=== PATIENT | female | born 1955 | race Asian ===

== ENCOUNTER 2021-06-29 01:41 | Emergency (ER) | payer MEDICARE, MEDICAID, SELFPAY ==
--- NOTE | ~2021-06-29 | CT_ITS ---
EXAMINATION: CT ABDOMEN AND PELVIS WITH CONTRAST CLINICAL INFORMATION: Abdominal pain, nausea and vomiting COMPARISON: None TECHNIQUE: Multidetector volumetric images were obtained from the superior aspect of the liver through the pubic symphysis following administration 85 mL of Omnipaque 350 intravenous contrast. Sagittal and coronal reformatted images were obtained on the technologist's workstation. Oral contrast: No This CT examination was performed using dose optimization techniques as appropriate, variously including the following: *Automated exposure control *Adjustment of mA and/or kV according to patient size (this includes techniques or standardized protocols for targeted exams where dose is matched to indication/reason for exam; i.e. extremities or head) *Use of iterative reconstruction technique DLP: 332 mGy-cm FINDINGS: LUNG BASES: The visualized lung bases are unremarkable. LIVER, GALLBLADDER, AND BILIARY TREE: The liver is normal in size, shape, and attenuation. There is a subcentimeter cyst within the medial segment. No suspicious liver lesions. No intra or extrahepatic biliary ductal dilatation is present. Gallbladder unremarkable. PANCREAS: Unremarkable. SPLEEN: Unremarkable. ADRENAL GLANDS: Unremarkable. KIDNEYS AND URETERS: The kidneys are normal in size, shape, and attenuation. There is a subcentimeter cyst in the left kidney, benign requiring no further follow-up. No hydronephrosis, hydroureter, or calculi seen. No perinephric stranding. BLADDER: Unremarkable. GASTROINTESTINAL TRACT: The small and large bowel are unremarkable. The appendix is unremarkable. ABDOMINAL WALL: No significant hernia is appreciated. LYMPH NODES: Normal. VASCULAR: Aorta is atherosclerotic but normal caliber. Patent venous structures. PELVIC VISCERA: Hysterectomy. Right ovary unremarkable. Left ovary not seen. No adnexal abnormalities. OSSEOUS STRUCTURES: No acute or suspicious osseous abnormalities. CT/CT abdomen pelvis w con IMPRESSION: No acute findings within the abdomen or pelvis to explain the patient's symptomatology.
[2021-06-29 01:45] VITALS: BP 173/88; PULSE 70; RESP 16; TEMP 36.9; O2SAT 98; BMI 21.4
[2021-06-29 02:11] LABS: Appearance Urine CLEAR; Color Urine YELLOW; Glucose Urine UA NEG (NEG); Leukocyte Esterase Urine NEG (NEG); Nitrite Urine NEG (NEG); Specific Gravity - Urine <= 1.005 (1.005-1.025); UACC Culture Trigger NO; Urine Blood TRACE (NEG); Urine Ketones NEG (NEG); Urine Protein NEG (NEG-TRACE)
[2021-06-29 02:17] LABS: Bacteria Urine 1+ /LPF; Squamous Epithelial Cell Urine 2+ /LPF
[2021-06-29 02:35] VITALS: BP 152/84; PULSE 64; RESP 14; O2SAT 98
[2021-06-29 02:39] LABS: MANUAL DIFF FLAG NO
[2021-06-29 02:41] LABS: Basophils Percent Auto 0.2 % (0-2); Eosinophils Percent Auto 0.8 % (0-4); Hematocrit 35.9 % (37-47); Hemoglobin 11.9 g/dl (12.0-16.0); Imm Gran Abs Auto 0.01 X10*3/uL (0.00-0.03); Imm Gran Pct Auto 0.2 % (0.0-0.4); Lymphocytes Absolute Auto 1.6 X10*3/uL (1.2-4.9); Lymphocytes Percent Auto 34.1 % (20-40); Mean Corpuscular HGB Conc 33.1 g/dl (31.0-35.0); Mean Corpuscular Hemoglobin 29.2 pg (27.0-33.0); Mean Corpuscular Volume 88.2 fL (80-98); Mean Platelet Volume 9.8 fL (9.4-12.3); Monocytes Absolute Auto 0.4 X10*3/uL (0.1-1.2); Monocytes Percent Auto 7.6 % (2-11); Neutrophils Absolute Auto 2.7 X10*3/uL (2.0-8.3); Neutrophils Percent Auto 57.1 % (45-73); Platelet Count 162 X10*3/uL (160-400); Red Blood Count 4.07 X10*6/uL (4.20-5.50); Red Cell Distribution Width 11.9 % (11.0-16.0); White Blood Count 4.8 X10*3/uL (4.8-10.8)
[2021-06-29 02:54] LABS: Alanine Aminotransferase 10 U/L (0-31); Albumin Level 4.2 g/dL (3.5-5.0); Alkaline Phosphatase 86 U/L (39-117); Anion Gap 9 (12-20); Aspartate Amino Transferase 20 U/L (5-31); Bilirubin Total 0.3 mg/dL (0.0-1.0); Blood Urea Nitrogen 16 mg/dL (9-16); Calcium 8.9 mg/dL (8.4-10.2); Carbon Dioxide 28 mmol/L (22-29); Chloride 109 mmol/L (96-108); Creatinine Clr Calc Pharmacy 60.2; Estimated Glomerular Filt Rate > 60; Glucose Random 105 mg/dL (60-115); Potassium 3.3 mmol/L (3.3-5.1); Sodium 143 mmol/L (135-145); Total Protein 6.4 g/dL (6.5-8.0)
--- NOTE | 2021-06-29 03:19 | ECG_ITS ---
Test Reason : ABD PAIN Blood Pressure : / mmHG Vent. Rate : 070 BPM Atrial Rate : 070 BPM P-R Int : 196 ms QRS Dur : 090 ms QT Int : 440 ms P-R-T Axes : 048 004 004 degrees QTc Int : 475 ms Normal sinus rhythm Nonspecific ST and T wave abnormality Abnormal ECG No previous ECGs available Referred By: Cherri Boyle Electronically Signed By:ELIEZER DAWSON MD
[2021-06-29] MEDS: iohexoL 350 MG/ML 100 ML INFUS..BTL 85 ML IV (03:53)
[2021-06-29 04:01] VITALS: BP 167/82; PULSE 70; RESP 14; O2SAT 98
[2021-06-29] MEDS: 0.9 % Sodium Chloride 1,000 ML 999 ML IV (04:05)
[2021-06-29] MEDS: ondansetron HCL 4 MG/2 ML VIAL IVPUSH (04:06)
--- NOTE | 2021-06-29 04:16 | ED_ITS ---
HPI - Abdominal Pain General Chief Complaint: Abdominal Pain Stated Complaint: abd pain, vomiting Time Seen by Provider: 06/29/21 03:03 Source: patient and family (Son) Mode of arrival: ambulatory History of Present Illness HPI narrative: This is a 66-year-old female who presents with 1 week of mid/lower abdominal discomfort and nausea without vomiting for approximately 1 week. She states that the pain increased since yesterday and began feeling dizzy about 1 hour prior to presentation. Patient denies any fever, chills, shortness of breath, chest pain/palpitations, urinary pain/burning/frequency. Patient has past surgical history of hysterectomy and her last bowel movement was yesterday morning. In addition, patient complaints of experiencing ?vaginal pain?. Related Data Allergies Allergy/AdvReac Type Severity Reaction Status Date / Time No Known Allergies Allergy Verified 06/29/21 01:45 Review of Systems Review of Systems Pertinent positives and negatives as stated in HPI 10 point review of systems is otherwise negative. Physical Exam Vital Signs: Vital Signs: Last Vital Signs Temp 98.4 F 06/29/21 01:45 Pulse 70 06/29/21 04:01 Resp 14 06/29/21 04:01 BP 167/82 H 06/29/21 04:01 Pulse Ox 98 06/29/21 04:01 Body Mass Index 21.4 VITAL SIGNS: Reviewed. GENERAL: Well developed, well nourished, in no acute distress. HEAD: Normocephalic/atraumatic EYES: PERRLA, EOMI OROPHARYNX: no oral lesions noted, posterior pharynx clear NECK: Supple, no adenopathy LUNGS: Normal breath sounds. SpO2<98> CARDIOVASCULAR: Regular rate and rhythm without noted murmurs ABDOMEN: Soft, non-tender, non-distended with bowel sounds. MUSCULOSKELETAL: No tenderness, deformities, or effusions noted on gross inspection. EXTREMITIES: No cyanosis, clubbing or edema. SKIN: Inspection of the skin reveals no rashes NEUROLOGIC: Alert and oriented x 4. Strength and sensation to light touch were grossly intact x 4, no facial asymmetry, no pronator drift, no gait instability, cranial nerves 2-12 are grossly intact. Course Course Course Narrative: This is a 66-year-old female with history and clinical presentation suggestive of UTI, dehydration. On review of all investigations there are no acute findings to better explain patient's presentation and after receiving IV fluids and Zofran patient states that she has had complete resolution of dizziness. Results and findings were discussed with her bedside and she requests to be discharged home. She does have an appointment with gynecology this coming Wednesday. MDM - Abdominal Pain Lab Data Result diagrams: 06/29/21 02:34 06/29/21 02:34 Labs: Lab Results 06/29/21 06/29/21 06/29/21 Range/Units 01:59 02:34 02:34 WBC 4.8 (4.8-10.8) X10*3/uL RBC 4.07 L (4.20-5.50) X10*6/uL Hgb 11.9 L (12.0-16.0) g/dl Hct 35.9 L (37-47) % MCV 88.2 (80-98) fL MCH 29.2 (27.0-33.0) pg MCHC 33.1 (31.0-35.0) g/dl RDW 11.9 (11.0-16.0) % Plt Count 162 (160-400) X10*3/uL MPV 9.8 (9.4-12.3) fL Immature Gran % (Auto) 0.2 (0.0-0.4) % Neut % (Auto) 57.1 (45-73) % Lymph % (Auto) 34.1 (20-40) % [place] % (Auto) 7.6 (2-11) % Eos % (Auto) 0.8 (0-4) % Baso % (Auto) 0.2 (0-2) % Lymph # (Auto) 1.6 (1.2-4.9) X10*3/uL [place] # (Auto) 0.4 (0.1-1.2) X10*3/uL Eos # (Auto) 0.0 (0.0-0.4) X10*3/uL Baso # (Auto) 0.0 (0.0-0.2) X10*3/uL Abs Immat Gran (auto) 0.01 (0.00-0.03) X10*3/uL Absolute Neuts (auto) 2.7 (2.0-8.3) X10*3/uL Absolute Nucleated RBC 0.000 (0.0-0.012) X10*3/uL Nucleated RBC % (auto) 0.0 (0.0-0.2) /100WBC Sodium 143 (135-145) mmol/L Potassium 3.3 (3.3-5.1) mmol/L Chloride 109 H (96-108) mmol/L Carbon Dioxide 28 (22-29) mmol/L Anion Gap 9 L (12-20) BUN 16 (9-16) mg/dL Creatinine 0.66 (0.5-1.4) mg/dL Estim Creat Clear Calc 60.2 Estimated GFR > 60 Random Glucose 105 (60-115) mg/dL Calcium 8.9 (8.4-10.2) mg/dL Total Bilirubin 0.3 (0.0-1.0) mg/dL AST 20 (5-31) U/L ALT 10 (0-31) U/L Alkaline Phosphatase 86 (39-117) U/L Total Protein 6.4 L (6.5-8.0) g/dL Albumin 4.2 (3.5-5.0) g/dL Urine Color YELLOW Urine Appearance CLEAR Urine pH 6.0 (5.0-8.0) Ur Specific [place] <= 1.005 (1.005-1.025) Urine Protein NEG (NEG-TRACE) MG/DL Urine Glucose (UA) NEG (NEG) MG/DL Urine Ketones NEG (NEG) MG/DL Urine Blood TRACE (NEG) Urine Nitrite NEG (NEG) Ur Leukocyte Esterase NEG (NEG) Urine RBC 1-4 (0) /HPF Urine WBC 1-4 (0-4) /HPF Ur Squamous Epith Cells 2+ /LPF Urine Bacteria 1+ /LPF ECG Data Attestation: I personally reviewed and interpreted this ECG as follows: Prior ECG tracings: not available for review Interpretation: Normal sinus rhythm, HR-70, no STEMI, RI/QRS/QTC are within normal limits. Discharge Plan Discharge Clinical Impression: Abdominal pain, Vaginal pain Patient Disposition: Home, Self-Care Instructions: Abdominal Pain (ED), Pelvic Pain (ED) Additional Instructions: Follow-up with your primary care provider on Wednesday morning for re-evaluation. Keep the appointment with your rn clinical research as scheduled. Return to the ER for worsening of symptoms. Referrals: Moses Carreno MD [Primary Care Provider] - 2 days (Vaginal pain, dizziness, negative workup but noted urine spec gravity of 1.005) PMFSH Past Medical History Source: nursing notes reviewed Surgical History H/O: hysterectomy Social History Social History Advance Directives: No Advance Directives Information Provided: Yes
[2021-06-29] MEDS: Acetaminophen 325 MG TABLET 975 MG PO (05:29)
--- NOTE | 2021-06-29 05:41 | PC.NURSE ---
pt feels ready for discharge. pt has a scheduled CIVIL RIGHTS REPRESENTATIVE appointment in 5 days. stressed to pt how important it is to keep appointment and discuss recent symptoms and er visit.
--- NOTE | 2021-06-29 05:44 | PC.NURSE ---
MD HAD REQUESTED BLADDER SCAN EARLIER, FOLLOWING CT SCAN. MD NOTICED LARGE AMOUNT OF URINE IN BLADDER. PT AMBULATORY TO BATHROOM ALMOST IMMEDIATELY FOLLOWING CT SCAN TO VOID. PT FEELS THOUGH SHE IS EMPTYING BLADDER EACH TIME SHE VOIDS.
== END 2021-06-29 05:46 | disposition home or self-care (01) ==
PROVIDERS: Emergency Provider Student in an Organized Health Care Education/Training Program; PCP Internal Medicine
DX: R10.30 Lower abdominal pain, unspecified (principal); R10.2 Pelvic and perineal pain
CPT/HCPCS: 36415; 74177; 80053; 81001; 85025; 93005; 96361; 96374; 99284; 99285; J2405; Q9967